=== PATIENT | female | born 1980 | race Caucasian/White ===

== ENCOUNTER 2021-02-07 02:53 | Emergency (ER) | payer OTHER ==
[~2021-02-07] VITALS: Ht 157.5 cm; Wt 59.0 kg
[2021-02-07 05:00] VITALS: BP 111/52
== END 2021-02-07 05:05 | disposition home or self-care (01) ==
LOC: ER 02:53
DX: G43.909 Migraine, unspecified, not intractable, without status migrainosus (principal)